=== PATIENT | male | born 1970 | race Caucasian/White ===

== ENCOUNTER 2020-03-12 15:26 | Observation (INO) | payer BC ==
[~2020-03-12 15:26] MED LIST: Iopamidol 370 76% 100 ML VIAL ONE
[2020-03-12 16:09] LABS: #Basophils 0.1 thou/uL (0.0-0.2); #Eosinphils 0.2 thou/uL (0.0-0.7); #Lymphocytes 1.6 thou/uL (1.20-3.40); #Monocytes 0.7 thou/uL (0.11-0.59); #Neutrophils 5.2 thou/uL (1.40-6.50); %Basophils 0.7 % (0.0-1.0); %Eosinophils 2.1 % (0.0-10.0); %Lymphocytes 20.1 % (21.0-51.0); %Monocytes 9.3 % (0.0-10.0); %Neutrophils 67.9 % (42.0-75.0); Mean Corpuscular HGB CONC 34.7 g/dL (32.0-36.0); Mean Corpuscular Hemoglobin 32.2 pg (27.0-31.0); Mean Corpuscular Volume 92.9 fL (78.0-98.0); Mean Platelet Volume 7.3 fL (7.4-10.4); Platelet Count 218 thou/uL (130-400); RBC Distribution Width 11.6 % (11.5-14.5); Red Blood Cell (RBC) Count 4.67 mill/uL (4.70-6.10); White Blood Cell (WBC) Count 7.7 thou/uL (4.8-10.8)
--- NOTE | 2020-03-12 16:22 | RAD ---
CHEST ONE VIEW: 03/12/20 HISTORY: Chest pain. COMPARISON: Chest radiograph 02/25/20. FINDINGS: The lungs are mildly hypoinflated. No pneumothorax. No effusion. The cardiac silhouette and mediastin al contours are within normal limits. No acute osseous abnormality. IMPRESSION: Mild lung hypoinflation with bibasilar atelectatic changes. POS: HOME
[2020-03-12 16:31] LABS: ALT (SGPT) 50 U/L (8-55); AST (SGOT) 28 U/L (5-34); Albumin 4.4 g/dL (3.5-5.0); Alkaline Phosphatase 90 U/L (40-110); Anion Gap 15 mmol/L (10-20); BUN (Urea Nitrogen) 7 mg/dL (8.4-25.7); Bilirubin, Total 1.4 mg/dL (0.2-1.2); Calc. Creatinine Clearance 0 mL/min (70-130); Calcium 9.1 mg/dL (7.8-10.44); Carbon Dioxide 23 mmol/L (22-29); Chloride 105 mmol/L (98-107); Estimated GFR-MDRD 87; Globulin 2.5 g/dL (2.4-3.5); Glucose 127 mg/dL (70-105); Protein, Total 6.9 g/dL (6.0-8.3); Sodium 140 mmol/L (136-145)
[2020-03-12 16:53] LABS: Potassium 2.9 mmol/L (3.5-5.1)
[2020-03-12] MEDS ORDERED: Potassium Chloride 20 MEQ TAB ONE (17:32)
--- NOTE | 2020-03-12 18:44 | PDOC.HHP ---
Hospitalist HPI - History of Present Illness Chest pain History of Present Illness: Patient presents following an episode of severe left sided chest pain. The pain was stabbing/sharp in nature, continued to intensify and caused him to take shallow breaths. He states it became 10/10 in severity causing him to cry in pain. He felt tingling down the left arm. EMS arrived and he was given nitro SL as well as ASA. He states the pain relived within 40 seconds to 1 min. He has no pain at present. and has not had any recurrent pain since. Patient states he has never had pain like this before. Denies any cardiac work- up in the past. Reports having a known history of HTN and HLD. He is often under a lot of stress at work. ED Course: Labs done in the ED were notable for low potassium 2.9. Total bili 1.4. LTrop negative. D-dimer negative. CXR: Mild lung hypoinflation with bibasilar atelectatic changes. Given Potassium Chloride PO 40 mEq x 1. Hospitalist ROS - Review of Systems Constitutional: denies: fever, chills, sweats, weakness, malaise, other Eyes: denies: pain, vision change, conjunctivae inflammation, eyelid inflammation, redness, other ENT: denies: ear pain, ear discharge, nose pain, nose discharge, nose congestion , mouth pain, mouth swelling, throat pain, throat swelling, other Respiratory: reports: shortness of breath (shallow breathing due to pain, resolved once pain resolved.). denies: cough, dry, hemoptysis, SOB with excertion, pleuritic pain, sputum, wheezing, other Cardiovascular: reports: chest pain. denies: palpitations, orthopnea, paroxysmal noc. dyspnea, edema, light headedness, other Gastrointestinal: denies: nausea, vomiting, abdominal pain, diarrhea, constipation, melena, hematochezia, other Genitourinary: denies: dysuria, frequency, incontinence, hematuria, retention, other Musculoskeletal: reports: other (left arm tingling (resolved)). denies: neck pain, shoulder pain, arm pain, back pain, hand pain, leg pain, foot pain Skin: denies: rash, lesions, matt, bruising, other Neurological: denies: weakness, numbness, incoordination, change in speech, confusion, seizures, other - Medication Medications: ALLERGIES: No known drug allergies. Hospitalist History - Past Medical History Source: patient Cardiac: reports: HTN, Hyperlipidemia, Other (obesity) Psych: reports: Depression - Past Surgical History Past Surgical History: reports: Hernia Repair (x2), Other (Vasectomy) - Family History Family History: reports: no pertinent history - Social History Smoking Status: Never smoker Alcohol: reports: None Drugs: reports: none Living Situation: With Family Activity level: independent ambulation - Exam General Appearance: NAD Eye: PERRL, anicteric sclera ENT: normocephalic atraumatic, moist mucosa Neck: supple, no lymphadenopathy Heart: RRR, no murmur, no gallops, no rubs Respiratory: CTAB, no wheezes, no rales, no ronchi, normal chest expansion, no tachypnea Gastrointestinal: soft, non-tender, non-distended, normal bowel sounds, no guarding, no rigidity Extremities: no edema Skin: no rashes Neurological: cranial nerve grossly intact, normal sensation to touch Musculoskeletal: normal tone, normal strength, no muscle wasting Psychiatric: normal affect, normal behavior, A&O x 3 Hospitalist Results - Labs Result Diagrams: 03/12/20 15:59 03/13/20 00:50 Lab results: WBC 7.7 thou/uL (4.8-10.8) 03/12/20 15:59 Hgb 15.0 g/dL (14.0-18.0) 03/12/20 15:59 Hct 43.4 % (42.0-52.0) 03/12/20 15:59 MCV 92.9 fL (78.0-98.0) 03/12/20 15:59 Plt Count 218 thou/uL (130-400) 03/12/20 15:59 Neutrophils % 67.9 % (42.0-75.0) 03/12/20 15:59 Sodium 140 mmol/L (136-145) 03/12/20 15:59 Potassium 2.9 mmol/L (3.5-5.1) L* 03/12/20 15:59 Chloride 105 mmol/L (98-107) 03/12/20 15:59 Carbon Dioxide 23 mmol/L (22-29) 03/12/20 15:59 BUN 7 mg/dL (8.4-25.7) L 03/12/20 15:59 Creatinine 0.91 mg/dL (0.7-1.3) 03/12/20 15:59 Glucose 127 mg/dL (70-105) H 03/12/20 15:59 Calcium 9.1 mg/dL (7.8-10.44) 03/12/20 15:59 Total Bilirubin 1.4 mg/dL (0.2-1.2) H 03/12/20 15:59 AST 28 U/L (5-34) 03/12/20 15:59 ALT 50 U/L (8-55) 03/12/20 15:59 Alkaline Phosphatase 90 U/L (40-110) 03/12/20 15:59 Troponin I Less than 0.010 ng/mL (< 0.028) 03/12/20 15:59 Serum Total Protein 6.9 g/dL (6.0-8.3) 03/12/20 15:59 Albumin 4.4 g/dL (3.5-5.0) 03/12/20 15:59 - EKG Interpretation EKG: EKG- NSR, HR 87. No ST changes or T wave inversion. - Radiology Interpretation Chest x-ray Status: report reviewed by me Hospitalist H&P A/P - Problem (1) Chest pain Code(s): R07.9 - CHEST PAIN, UNSPECIFIED Status: Resolved (2) Hypokalemia Code(s): E87.6 - HYPOKALEMIA Status: Acute (3) Hypertension Code(s): I10 - ESSENTIAL (PRIMARY) HYPERTENSION Status: Chronic (4) Hyperlipidemia Code(s): E78.5 - HYPERLIPIDEMIA, UNSPECIFIED Status: Chronic (5) Obesity Code(s): E66.9 - OBESITY, UNSPECIFIED Status: Chronic (6) Depression Code(s): F32.9 - MAJOR DEPRESSIVE DISORDER, SINGLE EPISODE, UNSPECIFIED Status : Chronic - Plan Plan: Patient will remain on cardiac monitoring. We will continue to trend troponins. Daily ASA and statin. Replace potassium. Check magnesium. BNP, TSH added to labs. Stress test in the morning. Echo ordered. UDS. Reconcile home meds once verified. CODE STATUS: FULL Surrogate decision maker: Cris Rosas. ADDENDUM: Notified by RN, patient with recurring severe lower chest/epigastric pain. He states it is a 10/10 in severity. Was given nitro x 2 without any relief. EKG done showed no dynamic changes from initial EKG. Patient became hypotensive following second dose of nitro with BP in low 90s. He was holding his breath due to the pain. He was placed in trendelenburg and given 1L NS. Morphine then given. Pain eased to 5/10. BP improved to 130s systolic. No reproducible pain with palpation. He describes the pain to be different in that he feels like he has a tennis ball on his lower back at the level of the epigastric region. Lipase added on to labs. CTA ordered to rule out dissection. Bilateral BPs done, no deficit. Patient states pain better and only 4/10 but still with voluntary guarding on exam. No tenderness. Possibly a component of anxiety. Troponins continue to be negative (x 4). Potassium replaced. Will repeat electrolytes.
[2020-03-12 19:12] LABS: Troponin I Less than 0.010 ng/mL (< 0.028)
[2020-03-12] MEDS ORDERED: Potassium Chloride 40 MEQ in Sodium Chloride 0.9% 250 ML 250 ML IVPB SCH (20:00)
[2020-03-12] MEDS: Nitroglycerin 0.4 MG TAB (25 Tab Bottle) PO PRN ×3 (20:43→21:17)
[2020-03-12] MEDS ORDERED: Morphine 2 MG/ML SYRINGE SLOW IVP SCH ×2 (21:00→21:30)
[2020-03-12] MEDS ORDERED: Sodium Chloride 0.9% 1,000 ML IV SCH (21:15)
[2020-03-12 22:14] LABS: Troponin I Less than 0.010 ng/mL (< 0.028)
--- NOTE | 2020-03-12 22:35 | CT ---
CT ANGIOGRAM CHEST WITH CONTRAST CT ANGIGORAM ABDOMEN WITH CONTRAST 03/12/20 HISTORY: Chest pain. COMPARISON: Radiograph same day. FINDINGS: The aortic contour is nonaneurysmal. No dissection. No intramural hematoma or penetrating atheroscler otic ulcer. Mid ascending aorta measures up to 4.5 cm. The transverse aorta measures 3.1 cm. The descending thora cic aorta measures up to 3.2 cm. Abdominal aortic contour is normal. There is contrast within the renal collecting systems, ureters, and the renal pelvi indicating a rece nt contrast load. There are innumerable small nodules throughout the lungs which are random oriented without homogeneou s size. These range from 3 to 4 mm in size. The liver, spleen, pancreas and adrenal glands are unremarkable. The celiac trunk and superior mesent felix arteries are patent. The pancreas is unremarkable. The visualized bowel in the upper abdomen is not dilated. No free intra peritoneal gas or fluid. The pulmonary arteries are not dilated. No acute osseous abnormality. IMPRESSION: 1. Mild ectasia of the ascending aorta measuring up to 4.5 cm. No dissection or intramural hemat akila. 2. Innumerable small 3-4 mm nodules scattered throughout the lungs. These have the appearance of noncalcified granulomas. A follow-up CT of the chest in six month's time is recommended. 3. No evidence for pneumonia or other acute inflammatory process. POS: HOME
[2020-03-12] MEDS ORDERED: Lidocaine 2% Viscous Solution 10 ML, Aluminum & Magnesium Hydroxide 30 ML SSW SCH (23:30)
[2020-03-12] MEDS: Sodium Chloride 0.9% 1,000 ML IV SCH (23:44)
[2020-03-13 00:41] VITALS: BMI 37.0
[2020-03-13 00:43] LABS: Bacteria/HPF None Seen HPF (None Seen); Bilirubin Negative (Negative); Blood, Urine Negative (Negative); Clarity Clear (Clear); Glucose, Urine (Dipstick) Normal (Negative); Leukocyte Negative Leu/uL (Negative); Nitrite Negative (Negative); Protein, Urine (Dipstick) Negative (Neg-Trace); RBC/HPF 0-3 HPF (0-3); Squamous Epithelial 0-3 HPF (0-3); Urobilinogen Normal mg/dL (Less than 2); WBC/HPF 0-3 HPF (0-3)
[2020-03-13 00:44] LABS: Urine Culture Reflex No No
[2020-03-13 00:50] LABS: Amphetamine Not Detected (NotDetected); Barbiturates Screen Not Detected (NotDetected); Benzodiazepine Screen Not Detected (NotDetected); Cocaine Metabolite Screen Not Detected (NotDetected); Medtox Control Line Valid? VALID (VALID); Medtox Reader # READER 1; Methadone Not Detected (NotDetected); Methamphetamine Not Detected (NotDetected); Opiate Screen Detected (NotDetected); Oxycodone Screen Not Detected (NotDetected); Phencyclidine (PCP) Not Detected (NotDetected); THC/Cannabinoid Screen Not Detected (NotDetected); Tricyclic Screen Not Detected (NotDetected)
[2020-03-13] MEDS: Nitroglycerin 0.4 MG TAB (25 Tab Bottle) PO PRN ×2 (00:59→09:47)
[2020-03-13 01:25] LABS: Anion Gap 15 mmol/L (10-20); BUN (Urea Nitrogen) 10 mg/dL (8.4-25.7); Calc. Creatinine Clearance 143 mL/min (70-130); Calcium 8.6 mg/dL (7.8-10.44); Carbon Dioxide 22 mmol/L (22-29); Chloride 106 mmol/L (98-107); Estimated GFR-MDRD 78; Glucose 167 mg/dL (70-105); Potassium 3.8 mmol/L (3.5-5.1); Sodium 139 mmol/L (136-145)
[2020-03-13 06:04] LABS: Cardiac Risk 2.8 (Less than 4.5)
[2020-03-13] MEDS ORDERED: Pantoprazole 40 MG VIAL IVP SCH (09:00)
[2020-03-13] MEDS ORDERED: Aspirin 300 MG Suppository PR SCH (09:00)
[2020-03-13] MEDS: Losartan 25 MG TAB PO SCH (09:44)
[2020-03-13] MEDS: Aspirin 325 MG TAB PO SCH (09:44)
[2020-03-13] MEDS: Bupropion 150 MG XL TAB PO SCH (09:44)
[2020-03-13] MEDS ORDERED: Ketorolac Tromethamine 30 MG/ML VIAL IVP SCH ×2 (12:45→14:00)
[2020-03-13] MEDS: Sodium Chloride 0.9% 1,000 ML IV SCH (12:48)
--- NOTE | 2020-03-13 13:28 | PDOC.HOSPP ---
- Subjective Encounter Date: 03/13/20 Encounter Time: 11:30 Subjective: Patient seen and examined for CP 0 left sided - worse with deep breathing. Improved with NTG. No new complaints. No overnight events - Objective Vital Signs & Weight: Vital Signs (12 hours) Temp Pulse Resp BP Pulse Ox 03/13/20 11:44 98.6 F 75 16 135/83 96 03/13/20 08:00 98.2 F 78 16 142/88 H 95 03/13/20 04:37 98.4 F 81 12 135/74 95 Weight Weight 258 lb I&O: 03/12/20 03/13/20 03/14/20 06:59 06:59 06:59 Intake Total 1746 Output Total 500 Balance 1246 Result Diagrams: 03/12/20 15:59 03/13/20 00:50 EKG Reviewed by me: Yes (Tele SR) Hospitalist ROS - Review of Systems Respiratory: denies: cough, dry, shortness of breath, hemoptysis, SOB with excertion, pleuritic pain, sputum, wheezing, other Cardiovascular: reports: chest pain. denies: palpitations, orthopnea, paroxysmal noc. dyspnea, edema, light headedness, other Gastrointestinal: denies: nausea, vomiting, abdominal pain, diarrhea, constipation, melena, hematochezia, other - Medication Medications: Active Medications Generic Name Dose Route Start Last Admin Trade Name Freq PRN Reason Stop Dose Admin Aspirin 325 mg 03/13/20 09:00 03/13/20 09:44 Aspirin PO 325 mg DAILY MAL Administration Bupropion HCl 300 mg 03/13/20 09:00 03/13/20 09:44 Wellbutrin Xl PO 300 mg DAILY MAL Administration Sodium Chloride 1,000 mls @ 75 mls/hr 03/12/20 23:00 03/13/20 12:48 Normal Saline 0.9% IV 1,000 mls .[id number] MAL Administration Ketorolac Tromethamine 15 mg 03/13/20 12:45 03/13/20 12:45 Toradol IVP 03/13/20 14:45 15 mg NOW MAL Administration Losartan Potassium 25 mg 03/13/20 09:00 03/13/20 09:44 Cozaar PO 25 mg DAILY MAL Administration Nitroglycerin 0.4 mg 03/12/20 18:10 03/13/20 09:47 Nitrostat PO 1 tablet Q5MIN PRN Administration Chest Pain Sodium Chloride 10 ml 03/12/20 21:00 03/12/20 23:48 Flush - Normal Saline IVF Not Given Q12HR MAL Sodium Chloride 10 ml 03/12/20 18:10 03/13/20 09:49 Flush - Normal Saline IVF 10 ml PRN PRN Administration Saline Flush - Exam General Appearance: NAD Neck: supple, no JVD Heart: RRR, no gallops Respiratory: no wheezes, rhonchi (at bases) Gastrointestinal: soft, non-tender, normal bowel sounds Extremities: no cyanosis Neurological: no new deficit Psychiatric: normal affect, A&O x 3 Hosp A/P - Plan DVT proph w/SCDs Pleuritic CP Recent Pneumonia - completed Atbx HTN Hypokalemia Obesity BMI 37 Lung nodules Anxiety PLAN: Low dose ASA Resume Statins/Losartan/Bupropion Add PPI 1 dose Toradol Await Echo/Cardio input Replace Potassium Add IS Ambulate
[2020-03-13] MEDS ORDERED: cloNIDine 0.1 MG TAB PO PRN (13:40)
[2020-03-13] MEDS: Ibuprofen 800 MG TAB PO SCH (17:39)
[2020-03-13] MEDS: Potassium Chloride 20 MEQ TAB PO SCH (17:39)
--- NOTE | 2020-03-13 17:55 | CON ---
DATE OF CONSULTATION: HISTORY OF PRESENT ILLNESS: The patient is a 50-year-old gentleman who presents for evaluation of left-sided chest discomfort. The patient has no previous cardiac history. He most recently was diagnosed with pneumonia. He had been tested for COVID and twice was negative. He had been on antibiotics and started feeling better. The patient was at work when he developed severe left-sided chest discomfort. He states this was a persistent discomfort. He became short of breath with this pain. The patient states that lasted over an hour. He received nitroglycerin, and had some relief of the discomfort, but it still persisted. He woke up this morning and has continued to have persistent left-sided chest discomfort. He received morphine without resolution of the pain. PAST MEDICAL HISTORY: 1. Dyslipidemia. 2. Hypertension. PAST SURGICAL HISTORY: 1. Hernia surgery. 2. Vasectomy. SOCIAL HISTORY: Former smoker. FAMILY HISTORY: There is a positive family history of heart disease. ALLERGIES: CARRI INHIBITORS CAUSE COUGH. REVIEW OF SYSTEMS: Ten-point system otherwise unremarkable. PHYSICAL EXAMINATION: GENERAL: This is an obese gentleman, in distress. VITAL SIGNS: With a blood pressure 135/83. NECK: No jugular venous distention. LUNGS: Clear to auscultation. HEART: Regular rate and rhythm. Normal S1 and S2. No murmurs. ABDOMEN: Nondistended. EXTREMITIES: No edema. VASCULAR: Radial pulses are 2+. LABORATORY RESULTS: Sodium 139, potassium 3.8, chloride 106, bicarbonate 22, BUN 10, creatinine 1.0, and glucose 167. Troponin 0.01. His white blood cell count 7.7, hemoglobin 15.0, hematocrit 43.4, and his platelets were 218. EKG normal sinus rhythm with a normal ECG. Followup EKG normal sinus rhythm with no st-t wave abnormalities IMPRESSION: 1. Chest pain atypical. 2. Hypertension. 3. Dyslipidemia. 4. Hyperglycemia. 5. History of tobacco abuse. PLAN: This gentleman presents with persistent chest discomfort. He underwent a CT scan, which revealed no evidence of a dissection. His cardiac enzymes revealed no evidence of myocardial infarction. His EKG shows no acute ST-T changes. The patient's chest pain is suggestive of pleurisy . We will treat him with Toradol. We will check the patient's echocardiogram and follow this patient with you through his hospitalization. Job ID: [id number] [facility]
[2020-03-13] MEDS ORDERED: Atorvastatin Calcium 10 MG TAB PO SCH (21:00)
[2020-03-14] MEDS: Nitroglycerin 0.4 MG TAB (25 Tab Bottle) PO PRN ×2 (01:21→08:18)
[2020-03-14] MEDS: Losartan 25 MG TAB PO SCH (08:18)
[2020-03-14] MEDS: Ibuprofen 800 MG TAB PO SCH ×2 (08:18→11:15)
[2020-03-14] MEDS: Potassium Chloride 20 MEQ TAB PO SCH (08:18)
[2020-03-14] MEDS: Aspirin 325 MG TAB PO SCH (08:18)
[2020-03-14] MEDS: Bupropion 150 MG XL TAB PO SCH (08:18)
[2020-03-14] MEDS: Sodium Chloride 0.9% 1,000 ML IV SCH ×2 (08:20→13:42)
[2020-03-14 11:23] VITALS: BP 166/90; TEMP 97.6
--- NOTE | 2020-03-14 11:44 | NM ---
Radionucleotide stress and rest myocardial perfusion scan with CT attenuation correction and SPECT im aging Left ventricular wall motion evaluation and ejection fraction HISTORY: Chest pain. FINDINGS: Tyler protocol. Total test time 8:01. There is homogeneous uptake of radiotracer throughout the left ventricular myocardium. No focal perfu hernesto defect or reversibility. QGS analysis of gated SPECT images shows some relative decrease in wall motion at the inferoseptal wa ll. Ejection fraction calculated at 52%. LHR 30%. T.i.d. 1.0. IMPRESSION : Normal myocardial perfusion scan. Borderline LVEF (52%) with diminished motion of the anteroseptal wall.
--- NOTE | 2020-03-16 09:45 | DIS ---
DATE OF ADMISSION: 03/12/2020 DATE OF DISCHARGE: 03/14/2020 DISCHARGE DISPOSITION: Home. FOLLOWUP: 1. Follow up with primary care physician, Dr. Luli Dubon in 1 week. 2. Follow up with Dr. Neeraj Wren in 2 to 3 weeks. ALLERGIES: NO KNOWN DRUG ALLERGIES. THE PATIENT WAS SEEN AND EXAMINED ON THE DAY OF DISCHARGE. DENIES ANY NEW COMPLAINTS. NO CHEST PAIN, SHORTNESS OF BREATH, PALPITATIONS REPORTED. DISCHARGE MEDICATIONS: The patient was advised to take ibuprofen for next 2 to 3 days. All other home medications were left unchanged. BRIEF HOSPITAL COURSE: The patient is a 50-year-old male with recent pneumonia, presented to the emergency room with pleuritic chest discomfort which was left-sided, moderate to severe in intensity, worse with deep breathing. Please refer to the history and physical for further details. The patient was admitted to the hospital with a diagnosis of chest discomfort rule out acute coronary syndrome. His serial troponins remain negative. Due to continued chest discomfort, he was evaluated by Cardiology. Echocardiogram showed left ventricular ejection fraction of 50% to 55% with mild tricuspid regurgitation, dilated aortic root. Left ventricular size was normal. He also underwent a Cardiolite stress test that was negative for reversible ischemia. His TID was 1.0 with ejection fraction of 52%. There was relative decrease in the wall motion at the inferoseptal wall. CT aortic dissection protocol was negative for acute findings except for mild ectasia of the ascending aorta measuring up to 4.5 cm. He also had innumerable small 3 to 4 mm nodules scattered throughout the lungs that was appearing like noncalcified granulomas. He has been cleared by Cardiology for discharge. FINAL DIAGNOSES: 1. Pleuritic chest pain, improved with NSAID's. 2. Recent pneumonia, completed antibiotics. 3. Hypertension. 4. Hypokalemia. 5. Obesity with a BMI of 37. 6. Lung nodules. Primary care physician advised to follow. 7. Anxiety. 8. Mild ectasia of the ascending aorta measuring up to 4.5 cm. 9. Chronic kidney disease, stage 2. 10. The patient understands the above plan of care. 11. Fasting lipid profile showed cholesterol 95, LDL of 42, HDL of 34, and triglyceride of 97. Job ID: [id number]
--- NOTE | 2020-03-18 15:22 | EKG ---
Test Reason : Blood Pressure : / mmHG Vent. Rate : 087 BPM Atrial Rate : 087 BPM P-R Int : 148 ms QRS Dur : 090 ms QT Int : 390 ms P-R-T Axes : 042 -14 032 degrees QTc Int : 469 ms Normal sinus rhythm Moderate voltage criteria for LVH, may be normal variant Borderline ECG Confirmed by TOMASA KLINE DO ([id number]), brands editor JAY MENDOZA ([id number]) on 03/18/2020 3:21:48 PM Referred By: Confirmed By:TOMASA KLINE DO
== END 2020-03-14 14:30 | disposition home or self-care (01) ==
LOC: ERS 15:26 → 2SE 17:50
PROVIDERS: ADMIT Internal Medicine; ATTEND Internal Medicine
DX: R07.81 Pleurodynia (principal); I12.9 Hypertensive chronic kidney disease with stage 1 through stage 4 chronic kidney disease, or unspecified chronic kidney disease; N18.2 Chronic kidney disease, stage 2 (mild); E87.6 Hypokalemia; R91.8 Other nonspecific abnormal finding of lung field; F41.9 Anxiety disorder, unspecified; I77.810 Thoracic aortic ectasia; E78.5 Hyperlipidemia, unspecified; F32.9 Major depressive disorder, single episode, unspecified; F17.220 Nicotine dependence, chewing tobacco, uncomplicated; R73.9 Hyperglycemia, unspecified; E66.9 Obesity, unspecified; Z68.37 Body mass index [BMI] 37.0-37.9, adult; Z79.899 Other long term (current) drug therapy
CPT/HCPCS: 36415; 71045; 71275; 72191; 74175; 78452; 80048; 80053; 80061; 80306; 81001; 83690; 83735; 83880; 84443; 84484; 85025; 85379; 93005; 93010; 93017; 93306; 94760; 96361; 96374; 96375; 96376; A9500; C9113; G0378; J1885; J2270; J3480; J7050; Q9967